=== PATIENT | male | born 1950 | race Caucasian/White ===

== ENCOUNTER 2019-02-04 14:34 | Outpatient (CLI) | payer MEDICARE ==
--- NOTE | 2019-02-04 15:09 | CT ---
CT chest noncontrast HISTORY: Lung nodule. Follow-up. COMPARISON: CT chest from [facility] 07/11/2018. FINDINGS: Lungs remain hyperinflated with scattered areas of mild scarring. The noncalcified oval nod ular density associated with the anterior aspect of the minor fissure at the right mid chest is less conspicuous than on the prior study, no greater than 0.2 cm greatest diameter. Tiny nodule within the left lower lobe centrally is stable. No new nodule. No pleural fluid or pneumo thorax. Lack of contrast limits evaluation of the soft tissues. There is calcification within the arterial st ructures. 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 IMPRESSION: Interval decrease in size in right lung nodule. No new abnormalities evident. Partially calcified splenic artery aneurysm is stable. Atherosclerosis.
== END 2019-02-04 14:35 | disposition home or self-care (01) ==
LOC: MADCT 14:34
PROVIDERS: ATTEND Family Medicine
DX: R91.1 Solitary pulmonary nodule (principal); I72.8 Aneurysm of other specified arteries; I70.0 Atherosclerosis of aorta
CPT/HCPCS: 71250

== ENCOUNTER 2020-03-04 09:48 | Outpatient (CLI) | payer MEDICARE ==
[~2020-03-04 09:48] MED LIST: Iopamidol 370 76% 100 ML VIAL ONE
[2020-03-04 10:08] LABS: Calc. Creatinine Clearance 0 mL/min (70-130)
--- NOTE | 2020-03-04 11:21 | CT ---
CT CHEST WITH CONTRAST CLINICAL INDICATION: Solitary pulmonary nodule. Six-month follow-up evaluation. COMPARISON: 02/04/2019. FINDINGS: Aorta: Vascular calcifications are present. Thoracic aorta is normal in caliber without evidence of a n aortic dissection. Lungs: Tiny subcentimeter pleural-based nodular density along the anterior aspect of the minor fissur e is again seen and unchanged in size or appearance compared to prior exam. A tiny pleural-based nodular density along the left major fissure left lower lobe is also again seen and unchanged in size or appearance. No new pulmonary nodule or mass is seen within the lungs bilaterally. No pleural effusion is Mediastinum: No enlarged lymph nodes are seen by CT size criteria. Minimal vascular calcifications ar e seen involving the coronary arteries. Thyroid gland: Normal CT appearance. Osseous structures: Degenerative changes present in the spine. No suspicious lytic or sclerotic osseo us lesions are identified. Postoperative changes right shoulder are present. Chest wall: No abnormality visualized. Upper abdomen: Calcified granuloma is present in the right hepatic lobe. Peripherally calcified splen ic artery aneurysm is again present stable in size measuring 1.5 cm in diameter. Remainder of the visualized imaged upper abdomen IMPRESSION: 1. Stable subcentimeter pleural-based nodules along the right minor fissure and lower left major fiss ure. These nodular densities may represent small intrapleural lymph nodes. 2. Stable partially calcified splenic artery aneurysm.
== END 2020-03-04 09:49 | disposition home or self-care (01) ==
LOC: MADLAB 09:48
PROVIDERS: ATTEND Family Medicine
DX: R91.8 Other nonspecific abnormal finding of lung field (principal); I72.8 Aneurysm of other specified arteries
CPT/HCPCS: 36415; 71260; 82565; Q9967

== ENCOUNTER 2021-04-21 09:54 | Outpatient (CLI) | payer MEDICARE ==
[2021-04-21] MEDS ORDERED: Iopamidol 370 76% 100 ML VIAL ONE (11:59)
== END 2021-04-21 09:55 | disposition home or self-care (01) ==
LOC: MADCT 09:54
PROVIDERS: ATTEND Family Medicine
DX: R91.8 Other nonspecific abnormal finding of lung field (principal); J98.4 Other disorders of lung; N62 Hypertrophy of breast; I72.8 Aneurysm of other specified arteries
CPT/HCPCS: 71260; Q9967

== ENCOUNTER 2022-06-23 12:02 | Outpatient (CLI) | payer MEDICARE, OTHER ==
[2022-06-23 13:00] LABS: Cardiac Risk 3.7 (Less than 4.5)
== END 2022-06-23 12:03 | disposition home or self-care (01) ==
LOC: MADRAD 12:02
PROVIDERS: ATTEND Nurse Practitioner Family
DX: M54.50 Low back pain, unspecified (principal); M47.816 Spondylosis without myelopathy or radiculopathy, lumbar region; E78.5 Hyperlipidemia, unspecified
CPT/HCPCS: 36415; 72100; 80061